=== PATIENT | female | born 1990 | race Caucasian/White ===

== ENCOUNTER → 2024-12-28 07:18 | Outpatient (CLI) | payer OTHER, SELFPAY ==
--- NOTE | 2024-12-28 07:20 | DI.MRI.S_ITS ---
PROCEDURE: MR LUMBAR SPINE WO CON
== END ==
LOC: MRI 07:20
PROVIDERS: PCP Family Medicine; Referring Provider Family Medicine; Visit Provider Family Medicine
DX: M47.816 Spondylosis without myelopathy or radiculopathy, lumbar region (principal); M47.817 Spondylosis without myelopathy or radiculopathy, lumbosacral region; M48.07 Spinal stenosis, lumbosacral region; M43.17 Spondylolisthesis, lumbosacral region; M54.59 Other low back pain
CPT/HCPCS: 72148

== ENCOUNTER → 2025-01-11 06:55 | Outpatient (CLI) | payer OTHER, SELFPAY ==
--- NOTE | 2025-01-11 06:56 | DI.US.S_ITS ---
PROCEDURE: US PELVIC COMPLETE INDICATIONS: MENSES 01/05-. BEFORE RECENT MENSES - NO BLEEDING FOR 4 MONTHS. IUD SINCE 2022. TECHNIQUE: Real-time scanning was performed of the pelvic organs, with image documentation. Additional endovaginal scanning was necessary due to incomplete visualization of the adnexal and endometrial structures by transabdominal scanning. COMPARISON: None. FINDINGS: Uterus: Uterus is anteverted and normal in size at 6.3 x 4.3 x 3.3 cm. The myometrium is homogeneous. The endometrium measures 1.4 mm combined thickness. Intrauterine device appears in appropriate position. Trace anechoic fluid within the endometrium. Ovaries: The right ovary measures 2.8 x 1.7 x 1.9 cm, with a calculated ovarian volume of 4.5 cc. The left ovary measures 3.4 x 2.3 x 2.5 cm, with a calculated ovarian volume of 10.2 cc. The ovaries have a normal sonographic appearance. Less than 12 follicles can be seen in each ovary. No adnexal masses are seen. Other: No pathologic free abdominal or pelvic fluid. IMPRESSION: Normal appearance of the uterus and ovaries. Intrauterine device in appropriate position. Endometrium is normal in thickness. We strive to produce accurate, complete, and clear reports of imaging services. To assist us in improving patient care, this report was composed using standard report templates and voice recognition software. Therefore, it may contain abnormal punctuation, insertions and/or omissions. Occasional wrong-word or sound-alike substitutions may occur. Though we review the report and make efforts to correct it, we do recommend that the report be read carefully in proper context to recognize any text inaccuracies. Dictated by: Crow Wallace M.D. on 01/11/2025 at 12:16 Approved by: Crow Wallace M.D. on 01/11/2025 at 12:20
== END ==
LOC: US 06:55
PROVIDERS: PCP Family Medicine; Referring Provider Family Medicine; Visit Provider Family Medicine
DX: N92.6 Irregular menstruation, unspecified (principal); Z97.5 Presence of (intrauterine) contraceptive device
CPT/HCPCS: 76830; 76856